=== PATIENT | female | born 1995 | race Hispanic/Latino ===

== ENCOUNTER 2022-10-01 20:29 | Emergency (ER) | payer OTHER | END 2022-10-01 22:16 | disposition home or self-care (01) | LOC: CSHERS 20:29 | DX: O99.891 Other specified diseases and conditions complicating pregnancy (principal); B34.9 Viral infection, unspecified; Z3A.16 16 weeks gestation of pregnancy | CPT/HCPCS: 99283 ==

== ENCOUNTER 2022-10-16 17:06 | Emergency (ER) | payer OTHER ==
[2022-10-16 18:11] LABS: Bilirubin Neg (Negative); Blood, Urine Negative (Negative); Clarity Slightly Cloudy (Clear); Glucose, Urine (Dipstick) Normal (Negative); Ketone, Urine 150 mg/dL (Negative); Leukocyte 100 (Negative); Nitrite Negative (Negative); Protein, Urine (Dipstick) Negative (Neg-Trace); Urobilinogen Normal mg/dL (Less than 2); pH, Urine 6.5 (5.0-9.0)
[2022-10-16] MEDS ORDERED: Acetaminophen 500 MG TAB ONE (18:12)
[2022-10-16] MEDS ORDERED: Metoclopramide HCl 10 MG/2 ML VIAL ONE (18:12)
[2022-10-16 18:41] LABS: #Monocytes 0.4 10x3/uL (0.0-1.1); #Neutrophils 6.1 10x3/uL (1.5-8.4); %Basophils 0.3 % (0.0-2.0); %Eosinophils 0.1 % (0.0-6.0); %Lymphocytes 9.1 % (18.0-47.0); %Monocytes 4.9 % (0.0-10.0); %Neutrophils 85.3 % (40.0-75.0); Hemoglobin 11.7 g/dL (12.0-15.5); Mean Corpuscular HGB CONC 35.6 g/dL (32.0-36.0); Mean Corpuscular Hemoglobin 30.5 pg (27.0-33.0); Mean Corpuscular Volume 85.9 fl (81.6-98.3); Platelet Count 161 10x3/uL (150-450); RBC Distribution Width 13.3 % (11.5-14.5); Red Blood Cell (RBC) Count 3.83 10x6/uL (3.90-5.03); White Blood Cell (WBC) Count 7.1 10x3/uL (3.5-10.5)
[2022-10-16 18:44] LABS: ALT (SGPT) 20 U/L (8-55); AST (SGOT) 16 U/L (5-34); Albumin 3.4 g/dL (3.5-5.0); Alkaline Phosphatase 47 U/L (40-110); Anion Gap 12 mmol/L (10-20); BUN (Urea Nitrogen) 8 mg/dL (7.0-18.7); Bilirubin, Total 0.8 mg/dL (0.2-1.2); Calc. Creatinine Clearance 0 mL/min (70-130); Carbon Dioxide 21 mmol/L (22-29); Chloride 103 mmol/L (98-107); Estimated GFR 129; Glucose 81 mg/dL (70-105); Lipase 17 U/L (8-78); Potassium 3.3 mmol/L (3.5-5.1); Protein, Total 6.4 g/dL (6.0-8.3); Sodium 133 mmol/L (136-145)
[2022-10-16 18:54] LABS: Bacteria/HPF 3+ HPF (None Seen); Mucous/LPF 2+ LPF (<2+); RBC/HPF None Seen HPF (0-3); Squamous Epithelial 0-3 HPF (0-3)
[2022-10-16 19:53] LABS: SARS-CoV-2 NAA Rapid Test Not Detected (NotDetected)
== END 2022-10-16 21:01 | disposition home or self-care (01) ==
LOC: CSHERS 17:06
DX: A08.4 Viral intestinal infection, unspecified (principal); N39.0 Urinary tract infection, site not specified; I10 Essential (primary) hypertension; Z20.822 Contact with and (suspected) exposure to COVID-19
CPT/HCPCS: 36415; 76856; 80053; 81003; 81015; 83690; 85025; 86900; 86901; 87086; 93976; 96361; 96365; J2765

== ENCOUNTER 2023-02-08 02:50 | Day surgery (SDC) | payer OTHER ==
[2023-02-08] MEDS ORDERED: hydrALAZINE 20 MG/ML VIAL SLOW IVP PRN (03:30)
[2023-02-08 03:37] VITALS: BMI 33.2
[2023-02-08] MEDS ORDERED: hydrOXYzine 25 MG TAB PO SCH (03:45)
[2023-02-08 05:18] LABS: ALT (SGPT) 13 U/L (8-55); AST (SGOT) 14 U/L (5-34); Albumin 3.1 g/dL (3.5-5.0); Alkaline Phosphatase 82 U/L (40-110); Anion Gap 13 mmol/L (10-20); BUN (Urea Nitrogen) 6 mg/dL (7.0-18.7); Bilirubin, Total 0.4 mg/dL (0.2-1.2); Calc. Creatinine Clearance 178 mL/min (70-130); Calcium 8.2 mg/dL (7.8-10.44); Carbon Dioxide 21 mmol/L (22-29); Chloride 106 mmol/L (98-107); Estimated GFR 127; Globulin 3.2 g/dL (2.4-3.5); Glucose 81 mg/dL (70-105); Potassium 3.5 mmol/L (3.5-5.1); Protein, Total 6.3 g/dL (6.0-8.3); Sodium 136 mmol/L (136-145)
== END 2023-02-08 05:50 | disposition home or self-care (01) ==
LOC: CSHLD/OP 02:50
PROVIDERS: ATTEND Family Medicine
DX: O26.893 Other specified pregnancy related conditions, third trimester (principal); Z3A.34 34 weeks gestation of pregnancy
CPT/HCPCS: 80053; 82239; 99282

== ENCOUNTER 2023-03-03 23:12 | Inpatient (IN) | payer OTHER ==
[2023-03-03 23:54] VITALS: BMI 36.8
[2023-03-04 00:04] LABS: Fetal Membranes Rupture RUPTURE DETECTED (No Rupture)
[2023-03-04] MEDS ORDERED: Lidocaine 1% (PF) 30 ML VIAL SC PRN (01:30)
[2023-03-04] MEDS ORDERED: Acetaminophen 500 MG TAB PO PRN (01:30)
[2023-03-04] MEDS ORDERED: hydrALAZINE 20 MG/ML VIAL SLOW IVP PRN ×2 (01:30→16:15)
[2023-03-04] MEDS ORDERED: Ondansetron PF 4 MG/2 ML Vial IVP PRN ×3 (01:30→16:15)
[2023-03-04] MEDS ORDERED: Carboprost 250 MCG/ML AMP IM PRN (01:30)
[2023-03-04] MEDS ORDERED: Diphenoxylate HCl/Atropine Tablet PO PRN ×2 (01:30)
[2023-03-04] MEDS ORDERED: Methylergonovine 0.2 MG/ML VIAL IM PRN (01:30)
[2023-03-04] MEDS ORDERED: Oxytocin 30 units/NS 500 ML 500 ML IV SCH (01:30)
[2023-03-04] MEDS ORDERED: Promethazine HCl 25 MG/ML VIAL IM PRN ×3 (01:30→16:15)
[2023-03-04] MEDS ORDERED: Oxytocin 30 units/NS 500 ML 500 ML IVPB SCH (01:30)
[2023-03-04] MEDS ORDERED: Lactated Ringer's 1,000 ML IV SCH ×2 (01:30)
[2023-03-04] MEDS ORDERED: Misoprostol 200 MCG TAB RC PRN (01:30)
[2023-03-04 01:34] LABS: Hematocrit 32.3 % (34.9-44.5); Hemoglobin 10.7 g/dL (12.0-15.5); Mean Corpuscular HGB CONC 33.1 g/dL (32.0-36.0); Mean Corpuscular Hemoglobin 28.4 pg (27.0-33.0); Mean Corpuscular Volume 85.7 fl (81.6-98.3); Mean Platelet Volume 12.2 fl (7.4-10.4); Platelet Count 201 10x3/uL (150-450); RBC Distribution Width 13.5 % (11.5-14.5); Red Blood Cell (RBC) Count 3.77 10x6/uL (3.90-5.03); White Blood Cell (WBC) Count 9.2 10x3/uL (3.5-10.5)
[2023-03-04 02:05] LABS: HBSAg Index 0.16 S/CO (0-0.99); Hep B Surf Ag - L&D Non-Reactive S/CO (NonReactive)
[2023-03-04 02:06] LABS: Syphilis Antibody Nonreactive (Nonreactive); Syphilis Antibody Index 0.05 S/CO (<1.00 Non-Reactive)
[2023-03-04] MEDS: fentaNYL 50 mcg/mL 1 mL Vial SLOW IVP PRN ×2 (05:03→07:20)
[2023-03-04] MEDS ORDERED: fentaNYL/Ropivacaine Epidural 100 ML ONE (08:40)
[2023-03-04] MEDS ORDERED: Acetaminophen 325 MG TAB PO PRN (09:17)
[2023-03-04] MEDS ORDERED: Lactated Ringer's 500 ML IV PRN (09:17)
[2023-03-04] MEDS ORDERED: Moisturizing Cream (Eucerin) 113 GM JAR TOP PRN (09:17)
[2023-03-04] MEDS ORDERED: Naloxone HCl 0.4 mg/ml Vial IVP PRN ×2 (09:17)
[2023-03-04] MEDS ORDERED: diphenhydrAMINE 50 MG/ML VIAL IVP PRN (09:17)
[2023-03-04] MEDS ORDERED: ePHEDrine Sulfate 50 MG/10 ML VIAL SLOW IVP PRN (09:17)
[2023-03-04] MEDS ORDERED: fentaNYL 2 mcg/Ropivacaine 0.2% Epidural 100 ML CADD EPIDURAL SCH (09:30)
[2023-03-04] MEDS ORDERED: Communication Order-Pharmacy FS SCH (09:30)
[2023-03-04] MEDS ORDERED: Lanolin Ointment 7 GM TUBE TOP PRN (16:15)
[2023-03-04] MEDS ORDERED: diphenhydrAMINE 25 MG CAP PO PRN (16:15)
[2023-03-04] MEDS ORDERED: Milk Of Magnesia 30 ML UDCUP PO PRN (16:15)
[2023-03-04] MEDS ORDERED: Boostrix 0.5 ML (Tdap) VIAL (>/=7 yrs of age) IM ONE (16:15)
[2023-03-04] MEDS ORDERED: Bisacodyl 10 MG SUPP PR PRN (16:15)
[2023-03-04] MEDS: Ibuprofen 800 MG TAB PO SCH (16:52)
[2023-03-04] MEDS: HYDROcodone/Acetaminophen 5/325 mg Tablet PO PRN ×2 (16:52→22:38)
[2023-03-04] MEDS: Ferrous Sulfate 325 MG TAB PO SCH (16:53)
[2023-03-04] MEDS ORDERED: Bupivacaine 0.25% HCL 30 ML VIAL ONE (18:00)
[2023-03-04] MEDS ORDERED: ePHEDrine Sulfate 50 MG/10 ML VIAL ONE (18:00)
[2023-03-04] MEDS: Docusate 100 MG CAP PO SCH (21:09)
[2023-03-05] MEDS: Ibuprofen 800 MG TAB PO SCH ×2 (00:07→08:38)
[2023-03-05] MEDS: Ferrous Sulfate 325 MG TAB PO SCH (07:18)
[2023-03-05] MEDS: Docusate 100 MG CAP PO SCH (08:38)
[2023-03-05] MEDS ORDERED: Prenatal Vitamin 1 TAB PO SCH (09:00)
[2023-03-05 10:45] VITALS: BP 123/85; TEMP 98.8
== END 2023-03-05 10:10 | disposition home or self-care (01) | DRG 807 ==
LOC: CSHLD/OP 23:12 → CSHLD 03-04 00:44 → CSHPP 03-04 14:45
PROVIDERS: ADMIT Family Medicine; ATTEND Family Medicine
PROC: 10E0XZZ Delivery of Products of Conception, External Approach (ICD-10-PCS; principal; 2023-03-04)
PROC: 10907ZC Drainage of Amniotic Fluid, Therapeutic from Products of Conception, Via Natural or Artificial Opening (ICD-10-PCS; 2023-03-04)
PROC: 3E033XZ Introduction of Vasopressor into Peripheral Vein, Percutaneous Approach (ICD-10-PCS; 2023-03-04)
PROC: 3E033VJ Introduction of Other Hormone into Peripheral Vein, Percutaneous Approach (ICD-10-PCS; 2023-03-04)
DX: O80 Encounter for full-term uncomplicated delivery (principal); Z37.0 Single live birth; Z3A.38 38 weeks gestation of pregnancy
CPT/HCPCS: 36415; 51702; 84112; 85027; 86780; 86850; 86900; 86901; 87340; 99285; J2590; J3010; S0020